=== PATIENT | female | born 1995 | race African-American/Black ===

== ENCOUNTER 2017-01-10 08:44 | Observation (INO) ==
--- NOTE | 2017-01-10 10:09 | Ultrasound Report ---
Exam: US OB transvaginal Date: 01/10/2017 9:22 AM Comparison: 04/03/2015 Indication: UTI spotting Technique:[Initial limited transabdominal real-time scans were obtained. Additional transvaginal scans were obtained.] Color-flow scans obtained. Ultrasound images were captured and stored. Findings: The uterus is anteverted in its position and measures 110 x 47 x 52 mm. No gestational sac is identified in the uterus. Right ovary measures 40 x 21 x 19 mm. Left ovary measures 27 x 23 x 22 mm. Multiple bilateral renal ovarian cysts are noted with color flow documented. Left adnexal mass measuring 27 x 24 x 40 mm. There is a pole within this finding which corresponds to 7 weeks 0 days. No cardiac activity identified. Significant amount of complex fluid in the pelvis which appears to extend to the level of the liver and spleen. Impression: Findings consistent with left ectopic with early embryonic demise at 7 weeks gestation. There is a significant amount of complex fluid/blood in the abdomen and pelvis. No intrauterine identified. These findings were discussed with Dr. Engle at 10:05 AM on 01/10/2017. Critical test results PROCEDURE INTERPRETED AT [facility] DEPARTMENT OF RADIOLOGY Final Report Signed by: Dr. Jennifer Mckeon
[2017-01-10] MEDS ORDERED: SODIUM CHLORIDE 0.9% 1,000 ML IV STA (10:15)
[2017-01-10 10:19] LABS: Basophils % 0.3 % (0.0-0.8); Eosinophils % 0.2 % (0.00-10.9); Hematocrit 30.3 VOL% (35.7-47.0); Hemoglobin 10.8 GM/DL (12.0-16.0); Immature Granulocytes % 0.3 %; Immature Granulocytes Absolute 0.02 #; Lymphocytes # 0.7 10*3/uL (1.4-4.0); Lymphocytes % 11.1 % (21.3-54.2); Mean Corpuscular HGB Conc 35.6 GM/DL (32-36); Mean Corpuscular Hemoglobin 29 PG (27-34); Mean Corpuscular Volume 82.3 FL (87-102); Mean Platelet Volume 9.1 FL (9.6-12.0); Monocytes # 0.5 10*3/uL (0.11-0.8); Monocytes % 7.7 % (1.7-12.7); Neutrophils # 5.1 10*3/uL (1.4-7.4); Neutrophils % 80.4 % (38.7-73.9); Platelet Count 256 T/CUMM (130-400); Red Blood Count 3.68 MC/CUMM (3.8-5.5); Red Cell Distribution Width 13.6 % (9.3-17.3); White Blood Count 6.4 T/CUMM (4-12)
--- NOTE | 2017-01-10 10:19 | Emergency Department Note ---
Arrival - Arrival Chief Complaint: Urogenital - Female Stated Complaint: uti s/s ED Nursing Triage Note: pt to er 17 via ems coming from home with c/o having uti s/s. 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 pt states she has missed a few pills and she isnt getting any better and having lower abd tightness. denies any pain or painful urination, denies any vaginal bleeding. pt is 6 wks gestation. Mode of Arrival: Stretcher Limitations: No Limitations Source: Patient Time Seen by Provider: 01/10/17 09:06 - History of Present Illness HPI Narrative: The patient complains of sharp, cramping lower abdominal pain since around 8:00 this morning. She has also had some vomiting. 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 No clots or tissue have passed. The patient denies any fever. No vaginal discharge. She was diagnosed with a UTI couple of weeks ago by her OB/ [facility] in [place]. She was started on Macrobid but has not taken this for at least a couple of days. The patient has a history of a right ectopic in the past. Allergies/Adverse Reactions: Allergies Allergy/AdvReac Type Severity Reaction Status Date / Time No Known Allergies Allergy Verified 01/10/17 08:48 Home Medications: Home Medications Medication Instructions Recorded Confirmed Type Nitrofurantoin Monohyd/M-Cryst 100 mg PO Q12H 01/10/17 01/10/17 History [Nitrofurantoin Drew-Mcr 100 mg] Pnv No.95/Ferrous Fum/Folic AC 1 each PO DAILY 01/10/17 01/10/17 History [ Tablet] Review of System - Review of System 12 point system: reviewed and no additional remarkable complaints except as stated - Review of System Constitutional: Absent: fever, weakness Head/Ears/Nose/Throat: Absent: nasal drainage, sore throat Respiratory: Absent: cough, respiratory distress Cardiovascular: Absent: chest pain Gastrointestinal: Present: abdominal pain, nausea, vomiting. Absent: diarrhea, constipation Genitourinary female: Present: other (Vaginal bleeding). Absent: dysuria, discharge Medical,Surgical,& Family Hx - Medical History Reproductive: History of: Ectopic - Surgical History Additional Surgical History: Right salpingo-oophorectomy for ectopic . - Family History Family History: noncontributory - Social History Smoking Status: Never smoker Frequency of Alcohol Use: None Type of Drug Use: None Exam Physical Examination: GENERAL: Alert. No acute distress. HEENT: Normocephalic and atraumatic. There is no nasal drainage. No pharyngeal erythema or exudate. NECK: Normal inspection. Supple. No lymphadenopathy or meningismus. LUNGS: No respiratory distress. Clear to auscultation bilaterally, no wheezes, rales or rhonchi. HEART: Regular rate and rhythm. ABDOMEN: Soft, nondistended with hypoactive bowel sounds. Marked tenderness in the lower abdomen/pelvis bilaterally. BACK: Normal inspection. SKIN: Color normal. Warm and dry. EXTREMITIES: Nontender. Normal range of motion. Patient has abdominal pain on extension of legs. NEUROLOGICAL/PSYCHIATRIC: Alert and oriented -3 with normal mood and affect. Cranial nerves normal. No motor or sensory deficit. Vital Signs: Vital Signs Temperature 96.7 F L 01/10/17 08:44 Pulse Rate 92 H 01/10/17 08:44 Respiratory Rate 18 01/10/17 08:44 Blood Pressure 91/55 01/10/17 08:44 O2 Sat by Pulse Oximetry 96 01/10/17 08:44 Course - Reevaluation(s) Reevaluation #1: The patient has remained stable here in the ER. Blood pressure is 99/62. I have discussed the patient with Dr. Crow. We are going to send her on to surgery. Will type and cross for 2 units. HCG is still pending at this point. Time: 10:20 Results - Labs Lab Results: I have reviewed the patients labs Labs: Laboratory Tests 01/10/17 01/10/17 10:03 10:03 Hgb 10.8 L Hct 30.3 L Urine Leukocytes Negative - Impressions Ultrasound shows: Findings consistent with left ectopic with early embryonic demise at 7 weeks gestation. There is a significant amount of complex fluid/blood in the abdomen and pelvis. No intrauterine identified. Disposition Clinical Impression: Ectopic Case discussed with: patient Disposition: Still a Patient Condition: Guarded Time of Disposition: 10:30
[2017-01-10 10:24] LABS: Apearance,Urine Slightly Hazy (Clear); Bilirubin,Urine Negative (Negative); Blood, Urine Negative (Negative); Glucose,Urine (UA) Negative (Negative); Ketones,Urine Negative (Negative); Mucus,Urine Occasional /LPF (Occasional); Nitrite,Urine Negative (Negative); Protein,Urine Negative; RBC,Urine 1 /HPF (0-4); Squamous Epithelial Cell,Urine Occasional /HPF (0-10); Urine Color Yellow (Yellow); Urine Urobilinogen < 2.0 EU/DL (0.2-1.0); WBC,Urine 1 /HPF (0-6)
--- NOTE | 2017-01-10 11:15 | OB/GYN History & Physical ---
History of Present Illness History of present illness: Attending [facility]ICAL [facility]IST[facility] [employer], I was called and notified regarding Ms. Londono at 1025AM. I arrived at the ER at 1036am and assessment made. Dr. Zees was made aware after he presented the patient, to call the OR and notify Anesthesia to set up a room for an emergency laparoscopic surgery due to u/s findings of a ruptured ectopic with significant amount of free fluid in the abdomen. When I arrived I called the OR and spoke to Lacy CROWLEY and asked when could the case start. I was made aware that it would be another 30 minutes, I explained that was unacceptable for an emergency case and that it needed to go DIE[place]. She expressed her understanding and explained that she would open the room now. Pt. 21y/o LMP 11/29 presents with a positive test to the ER with a known left ectopic , with complaints of severe abdominal pain and vaginal bleeding since 8am this morning. Pt. states the reason she did not get treatment for the ectopic was because she was in denial. Pt. gives hx of having a right salpingectomy in 03/2015 for an ectopic . Pt. hx significant for chlamydia infection dx and treated in 2014. Pt. denies any chest pain or sob. no dizziness or palpitations. + weakness. Home Medications Medication Instructions Recorded Confirmed Type Nitrofurantoin Monohyd/M-Cryst 100 mg PO Q12H 01/10/17 01/10/17 History [Nitrofurantoin Grundy-Mcr 100 mg] Pnv No.95/Ferrous Fum/Folic AC 1 each PO DAILY 01/10/17 01/10/17 History [ Tablet] Allergies Allergy/AdvReac Type Severity Reaction Status Date / Time No Known Allergies Allergy Verified 01/10/17 08:48 12 point system: reviewed and no additional remarkable complaints except as stated - Constitutional Constitutional: Present: fatigue - Gastrointestinal Gastrointestinal: Present: abdominal pain, cramping - Genitourinary Genitourinary: Present: abnormal vaginal bleeding Medical,Surgical,& Family Hx - Medical History Reproductive: History of: Ectopic - Surgical History Abdominal Surgeries: Surgical HX of: Hernia Repair (umbilical hernia repair with mesh placement in 2010) - Social History Smoking Status: Never smoker Frequency of Alcohol Use: None 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 - Constitutional Vitals: Vital Signs Temp Pulse Resp BP BP Pulse Ox 01/10/17 11:00 80 111/60 100 01/10/17 10:00 101 H 114/58 100 01/10/17 08:44 96.7 F L 92 H 18 91/55 96 General appearance: mild distress - Antepartum / Post Antepartum Exam Cervix - Dilatation: deferred: ultrasound significant for ruptured ectobic - Respiratory Respiratory exam: Present: clear to auscultation bilaterally - Cardiovascular Cardiovascular exam: Present: regular rate and rhythm - GI/Abdominal GI/Abdominal exam: Present: guarding, tenderness - Extremities Exam Extremities exam: Present: normal inspection Assessment and Plan (1) Ruptured left tubal ectopic causing hemoperitoneum Status: Acute Assessment and plan: 1. admit 2. ivfs 3. labs 4. type and cross match 2 units of prbcs 5. I counseled the patient regarding findings on ultrasound that the previous ectopic seen while she was in [place] 4 days ago appears to have now ruptured and she needs surgery-laparoscopic salpingectomy and any other surgically indicated procedures to remove the involved tube. Pt. has hx of right ectopic and removal of that fallopian tube. I explained that she can still conceive however now it must be through in vitro fertilization if she so desires. I also explained the risk of the procedure including bleeding, infection, bowel or bladder injury, exploratory laparotomy etc. Pt. expressed her understanding and all questions answered. Current Visit: Yes Results - Labs CBC & BMP: 01/10/17 10:03
[2017-01-10] MEDS ORDERED: DEXAMETHASONE 10 MG/1 ML VIAL ONE (11:23)
[2017-01-10] MEDS ORDERED: SUCCINYLCHOLINE 200 MG/10 ML VIAL ONE (11:23)
[2017-01-10] MEDS ORDERED: PROPOFOL 200 MG/20 ML VIAL IV ONE (11:23)
[2017-01-10] MEDS ORDERED: ONDANSETRON 4 MG/2 ML VIAL ONE (11:23)
[2017-01-10] MEDS ORDERED: NEOSTIGMINE 10 MG/10 ML VIAL ONE (11:23)
[2017-01-10] MEDS ORDERED: LIDOCAINE 2% 5 ML VIAL ONE (11:23)
[2017-01-10] MEDS ORDERED: KETOROLAC 30 MG/1 ML VIAL ONE (11:23)
[2017-01-10] MEDS ORDERED: ROCURONIUM 100 MG/10 ML VIAL IV ONE (11:23)
[2017-01-10] MEDS ORDERED: GLYCOPYRROLATE 0.4 MG/2 ML VIAL ONE (11:23)
[2017-01-10] MEDS ORDERED: PHENYLEPHRINE 1 MG/10 ML SYRINGE IV ONE (11:23)
[2017-01-10 11:44] LABS: PT Patient Result 10.7 SECS; Partial Thromboplastin Time 24.8 SECS (0-40)
[2017-01-10 12:33] LABS: Calcium 8.8 MG/DL (8.5-10.1); Osmolality,Calculated 269.8 MOS/KG (273-304); Potassium 3.7 MMOL/L (3.5-5.1)
--- NOTE | 2017-01-10 13:18 | Operative Note ---
Date of procedure: 01/10/17 Pre-op diagnosis: 21y/o LMP 11/29 with + test and ruptured left ectopic preg Post-op diagnosis: same Procedure: left salpingectomy OPERATION: Laparoscopic Left salpingectomy with removal of ectopic PREOPERATIVE DIAGNOSES: 1. 21y/o with +BHCG and no Intrauterine and left fallopian ectopic visualized on sonogram with significant amount of hemoperitoneum POSTOPERATIVE DIAGNOSES: 1. SAME ANESTHESIA: General ESTIMATED BLOOD LOSS: 750cc FINDINGS: 750cc of hemoperitoneum, 3cm dilated left fallopian tube with semi aborting ectopic , right fallopian tube previously removed, normal appearing uterus dense adhesions in the cul-de-sac and throughout the pelvis including surrounding bilateral ovaries. The liver with "strings of violin" adhesions significant for most likely Pelvic inflammatory disesase. DESCRIPTION OF PROCEDURE: The patient was brought to the operating room where general anesthesia was given and found to be adequate. Villanueva was placed then the abdomen and vagina was prepped and draped in the normal sterile fashion . Next, a weighted speculum was placed in the vagina. The anterior lip of cervix was grasped with the tenaculum. The uterus sounded to 10 cm. A humi manipulator was then inserted into the uterine cavity. All instruments were then removed from the vagina . Attention was then turned to the abdomen where a small incision was made in left lower quandrant ( to avoid entering into the mesh from previous umbilical hernia repair). A Veress needle was introduced into the intraabdominal cavity. Intraabdominal placement was confirmed by appropriate pressure readings. The abdomen was insufflated with CO2 gas. The Veress needle was removed, and a 5-mm trocar was introduced with a 0-degree laparoscope confirming intraabdominal placement. The findings noted above. A small incision was made infraumbilically and inferior to previously placed mesh to accommodate a 5mm trocar under direct visualization with the laparoscope. One additional incision was made in the RLQ to accommodate a 10mm trocar. The ligasure was then used to coagulate and ligate the fallopian tube to remove ectopic from the left fallopian tube then the endocatch was used to retrieve the specimen from the abdomen. There was excellent hemostasis after the procedure. The Abdomen was then irrigated, all instruments were removed. The 10mm incision was closed with 0 vicryl on fascia and all skin incisions closed with 4.0 monocryl with excellent hemostasis. The patient was transferred to the recovery room in good condition. Anesthesia: regional Surgeon / Physician: Laverne Crow Estimated blood loss: other (750cc of hemoperitoneum) Specimens: other (left ectopic and fallopian tube) Condition: stable Disposition: PACU Results - Labs CBC & BMP: 01/10/17 13:30 01/10/17 10:00 Discharge Plan - Discharge Data Disposition: Disch To Home/Self Care - Discharge Medications New oxyCODONE/ACETAMINOPHEN 5-325 [Percocet 5-325] 1 tablet PO Q4H PRN #20 tablet PRN Reason: Pain No Action Nitrofurantoin Monohyd/M-Cryst [Nitrofurantoin Manatee-Mcr 100 mg] 100 mg PO Q12H Pnv No.95/Ferrous Fum/Folic AC [ Tablet] 1 each PO DAILY - Follow Up or Referral Follow Up: Laverne Crow MD [Physician] - - Forms/Instructions
--- NOTE | 2017-01-10 13:22 | Discharge Summary ---
Hospital Course - Hospital Course Hospital Course: Pt. presented to ER with known left ectopic diagnosed 4 days earlier in [place] however per pt did not seek treatment due to her being in denial. Pt. complained of vaginal bleeding and abdominal pain since 8am. ON arribial to the ER pt Hematocrit was 30 and ultrasound revealed left ectopic with a large amount of hemoperitoneum. Pt. was rushed to the OR and findings were that of 750cc of hemoperitoneum along with a 3cm left ruptured ectopic and dense adhesions seen through the pelvis and "violin strings" seen on the liver from PID. Laparoscopic left salpingectomy was performed. Pt. tolerated the procedure well. Diagnosis - Discharge Diagnosis (1) Ruptured left tubal ectopic causing hemoperitoneum Status: Acute Specialty Discharge - Follow Up or Referrals Follow up with: Laverne Crow MD [Physician] - Discharge Plan - Discharge Data Disposition: Disch To Home/Self Care Condition at Discharge: Stable Discharge Diet: advance to your usual diet Activity: no lifting Hygiene: may shower Weight Bearing at Discharge: full weight bearing Driving: not until seen by doctor Contact your physician if you experience:: fever over 101, Difficulty voiding, Redness or swelling, Nausea/Vomiting, Shortness of breath, Bleeding, pain uncontrolled by pain medications - Discharge Medications New oxyCODONE/ACETAMINOPHEN 5-325 [Percocet 5-325] 1 tablet PO Q4H PRN #20 tablet PRN Reason: Pain No Action Nitrofurantoin Monohyd/M-Cryst [Nitrofurantoin Osborne-Mcr 100 mg] 100 mg PO Q12H Pnv No.95/Ferrous Fum/Folic AC [ Tablet] 1 each PO DAILY - Follow Up or Referral Follow Up: Laverne Crow MD [Physician] - - Forms/Instructions Additional Discharge Instructions: Appt with Dr. Crow on 01/24/17 @ 10am for postop. [facility] [place] [address]. Same building [facility] Exam - Constitutional Vitals: Period Temp Pulse Resp BP Sys/Barrios Pulse Ox Last 24 Hr 96.7 F 80-101 18 91-114/55-60 96-100 General appearance: no acute distress - Respiratory Respiratory exam: Present: clear to auscultation bilaterally - Cardiovascular Cardiovascular exam: Present: regular rate and rhythm - GI/Abdominal GI/Abdominal exam: Present: normal bowel sounds, soft - Extremities Exam Extremities exam: Present: normal inspection Discharge Results Procedures and tests throughout hospitalization: Pending Orders 01/10/17 13:15 CBC [Comp Blood Count Auto Diff] Stat HIV Antigen/Antibody Combo* Routine RPR [Treponema pallidum Ab] Routine 01/10/17 13:16 Hepatitis B Surface Antigen* Routine Labs on day of discharge: Labs from last 24 hours 01/10/17 01/10/17 01/10/17 10:25 10:03 10:03 WBC RBC Hgb Hct MCV MCH MCHC RDW Plt Count MPV Neut % (Auto) Lymph % (Auto) Osborne % (Auto) Eos % (Auto) Baso % (Auto) Neut # (Auto) Lymph # (Auto) Osborne # (Auto) Eos # (Auto) Baso # (Auto) Immature Gran % Nucleated RBC % Immature Gran # Nucleated RBCs # Immature Plt Fraction INR 1.0 PT Patient/Control Mix 10.7 Circ Anticoag PTT 24.8 Sodium Potassium Chloride Carbon Dioxide Anion Gap BUN Creatinine GFR Calculation BUN/Creatinine Ratio Glucose Calculated Osmolality Calcium HCG Beta Subunit 13011.0 H Urine Color Urine Appearance Urine pH Ur Specific [place] Urine Protein Urine Glucose (UA) Urine Ketones Urine Blood Urine Nitrate Urine Bilirubin Urine Urobilinogen Urine Leukocytes Urine RBC Urine WBC Ur Squamous Epith Cells Urine Mucus Ur Culture Indicated? Blood Type A POSITIVE Antibody Screen Negative 01/10/17 01/10/17 01/10/17 10:03 10:03 10:00 WBC 6.4 RBC 3.68 L Hgb 10.8 L Hct 30.3 L MCV 82.3 L MCH 29 MCHC 35.6 RDW 13.6 Plt Count 256 MPV 9.1 L Neut % (Auto) 80.4 H Lymph % (Auto) 11.1 L Osborne % (Auto) 7.7 Eos % (Auto) 0.2 Baso % (Auto) 0.3 Neut # (Auto) 5.1 Lymph # (Auto) 0.7 L Osborne # (Auto) 0.5 Eos # (Auto) 0.0 Baso # (Auto) 0.0 Immature Gran % 0.3 Nucleated RBC % 0.0 Immature Gran # 0.02 Nucleated RBCs # 0.00 Immature Plt Fraction 0.0 INR PT Patient/Control Mix Circ Anticoag PTT Sodium 137 Potassium 3.7 Chloride 107 Carbon Dioxide 21 Anion Gap 12.7 BUN 6 L Creatinine 0.50 L GFR Calculation 149 BUN/Creatinine Ratio 12.00 Glucose 86 Calculated Osmolality 269.8 L Calcium 8.8 HCG Beta Subunit Urine Color Yellow Urine Appearance Slightly hazy Urine pH 6.0 Ur Specific [place] 1.010 Urine Protein Negative Urine Glucose (UA) Negative Urine Ketones Negative Urine Blood Negative Urine Nitrate Negative Urine Bilirubin Negative Urine Urobilinogen < 2.0 H Urine Leukocytes Negative Urine RBC 1 Urine WBC 1 Ur Squamous Epith Cells Occasional Urine Mucus Occasional Ur Culture Indicated? Not indicated Blood Type Antibody Screen 01/10/17 09:22 WBC RBC Hgb Hct MCV MCH MCHC RDW Plt Count MPV Neut % (Auto) Lymph % (Auto) Osborne % (Auto) Eos % (Auto) Baso % (Auto) Neut # (Auto) Lymph # (Auto) Osborne # (Auto) Eos # (Auto) Baso # (Auto) Immature Gran % Nucleated RBC % Immature Gran # Nucleated RBCs # Immature Plt Fraction INR PT Patient/Control Mix Circ Anticoag PTT Sodium Potassium Chloride Carbon Dioxide Anion Gap BUN Creatinine GFR Calculation BUN/Creatinine Ratio Glucose Calculated Osmolality Calcium HCG Beta Subunit Urine Color Urine Appearance Urine pH Ur Specific [place] Urine Protein Urine Glucose (UA) Urine Ketones Urine Blood Urine Nitrate Urine Bilirubin Urine Urobilinogen Urine Leukocytes Urine RBC Urine WBC Ur Squamous Epith Cells Urine Mucus Ur Culture Indicated? Blood Type A POSITIVE Antibody Screen DS: Provider Date of admission: 01/10/17 11:33 Primary care physician: . No PCP Attending physician on admission: Laverne Crow, Discharging clinician: Laverne Crow
[2017-01-10] MEDS ORDERED: MEPERIDINE 25 MG/1 ML VIAL ONE (13:33)
[2017-01-10] MEDS ORDERED: SEVOFLURANE 1 UNIT/15 MINUTE INH ONE (13:36)
[2017-01-10] MEDS ORDERED: LACTATED RINGERS 2,000 ML IV ONE (13:37)
[2017-01-10] MEDS ORDERED: ACETAMINOPHEN 1,000 MG/100 ML VIAL IV ONE (13:37)
[2017-01-10] MEDS ORDERED: MIDAZOLAM 2 MG/2 ML VIAL ONE (13:37)
[2017-01-10] MEDS ORDERED: fentaNYL 100 MCG/2 ML VIAL ONE (13:37)
[2017-01-10 13:40] LABS: Basophils % 0.2 % (0.0-0.8); Eosinophils % 0.1 % (0.00-10.9); Hematocrit 27.1 VOL% (35.7-47.0); Hemoglobin 9.3 GM/DL (12.0-16.0); Immature Granulocytes % 0.3 %; Immature Granulocytes Absolute 0.03 #; Lymphocytes # 0.7 10*3/uL (1.4-4.0); Lymphocytes % 7.9 % (21.3-54.2); Mean Corpuscular HGB Conc 34.3 GM/DL (32-36); Mean Corpuscular Hemoglobin 29 PG (27-34); Mean Corpuscular Volume 84.4 FL (87-102); Mean Platelet Volume 10.6 FL (9.6-12.0); Monocytes # 0.4 10*3/uL (0.11-0.8); Monocytes % 4.6 % (1.7-12.7); Neutrophils # 8.1 10*3/uL (1.4-7.4); Neutrophils % 86.9 % (38.7-73.9); Platelet Count 153 T/CUMM (130-400); Red Blood Count 3.21 MC/CUMM (3.8-5.5); Red Cell Distribution Width 13.6 % (9.3-17.3); White Blood Count 9.3 T/CUMM (4-12)
[2017-01-10] MEDS ORDERED: MEPERIDINE 25 MG/1 ML VIAL IV PRN (13:40)
[2017-01-10 14:04] LABS: Hypochromasia Slight; Platelet Estimate Decreased; Polychromasia Slight
[2017-01-10 14:12] LABS: Hepatitis B Surface Ag Result Negative (Negative)
[2017-01-10 16:12] VITALS: BP 96/67
--- NOTE | 2017-01-10 16:49 | Anesthesia Post-Op ---
Anesthesia Post OP - Post Ansesthetic Evaluation Patient seen in post op: Yes Resp: within normal limits CV: within normal limits Mental: within normal limits Temp: within normal limits [id number]: within normal limits Nausea and Vomiting: within normal limits Pain: within normal limits
--- NOTE | 2017-01-11 11:29 | Pathology Report from [facility] ---
[facility] ACCESSION # : [id number] PATIENT NAME : Tory Londono ORDERING DR : Laverne Crow MD CLINICAL HX: Ectopic POST-OP DX: Same SPECIMEN INFO: Left ectopic and fallopian tube GROSS DESCRIPTION: The specimen is received in formalin labeled with the patients name and consists of a fimbriated hemorrhagic fallopian tube segment measuring 4.5 x 2.0 cm with an attached portion of clotted blood and chorionic villi measuring 3.0 x 2.5 cm. No tissue is appreciated. Gas Reverser sections submitted in cassettes A and B. DIAGNOSIS FOR TORY LONDONO: LEFT ECTOPIC & FALLOPIAN TUBE: Ectopic products of conception including chronic villi, inflammation, blood and fibrin. COLLECTED DATE: 01/10/2017 [facility] REPORT DATE: 01/11/2017 ELECTRONICALLY SIGNED BY: Rosa Church M.D. 01/11/2017 - 9:22:47 MTDD
== END 2017-01-10 21:15 | disposition home or self-care (01) | DRG 545 ==
LOC: EDUNIT# → EDBD → N.ED 08:44 → N.EDINP 11:00 → INTOOBSV 11:33 → N.OB 14:14
PROVIDERS: ADMIT Obstetrics & Gynecology; ATTEND Obstetrics & Gynecology